=== PATIENT | female | born 1965 | race Caucasian/White ===

== ENCOUNTER 2018-08-27 10:30 | Emergency (ER) | payer SELFPAY, MEDICAID ==
[2018-08-27] MEDS ORDERED: NICARDipine HCL 30 MG CAPSULE PO (12:30)
== END 2018-08-27 13:00 | disposition home or self-care (01) ==
LOC: E/R 10:30
DX: I10 Essential (primary) hypertension (principal)
CPT/HCPCS: 93005; 99283